=== PATIENT | female | born 1960 | race Caucasian/White ===

== ENCOUNTER 2017-05-15 22:35 | Inpatient (IN) | payer OTHER ==
[~2017-05-15] VITALS: Ht 172.7 cm; Wt 99.0 kg
--- NOTE | 2017-05-15 23:20 | NUR ---
PT WHEELED TO ROOM 8
--- NOTE | 2017-05-16 00:20 | NUR ---
PATIENT STILL HYPERVENTILATING, BUT APPEARS MORE RELAXED, ALTHOUGH SHAKY. MEDICATIONS ADMINISTERED AND IV INFUSING PER ORDERS.
[2017-05-16] MEDS ORDERED: MULTIVITAMI9 PO (00:28)
[2017-05-16 00:34] LABS: HEMOGLOBIN 13.4 g/dl (12.0-16.0); IMMATURE GRANULOCYTES 0.6 % (0.0-1.0); MEAN CORPUSCULAR HGB 27.5 pG CALC (26.0-32.0); MEAN CORPUSCULAR HGB CONC 32.7 g/L CALC (32.0-36.0); NEUT# 9.75 thou/uL (2.00-7.15); RED BLOOD COUNT 4.88 mill/uL (4.20-5.60); RED CELL DISTRI WIDTH 15.5 % (11.5-15.5)
[2017-05-16 00:50] LABS: ALBUMIN 4.5 g/dL (3.2-5.0); ALKALINE PHOSPHATASE 131 u/l (38-126); AMYLASE 79 u/l (30-110); ANION GAP 20 (6-22 (CALC)); BUN 12 mg/dL (7-17); BUN/CREATININE RATIO 13 (12-20 (CALC)); CARBON DIOXIDE 19 mmol/l (22-30); CHLORIDE 100 mmol/l (95-108); CREATININE 0.9 mg/dL (0.5-1.0); GFR > 60 ML/MIN (>=60 (CALC)); GFR FOR AFR.AMER. > 60 ML/MIN (>=60 (CALC)); LIPASE 47 u/l (23-300); POTASSIUM 3.7 mmol/l (3.5-5.1); SGOT/AST 33 u/l (14-36); SGPT/ALT 23 u/l (9-52); SODIUM 136 mmol/l (137-146); TOTAL PROTEIN 8.1 g/dL (6.3-8.2)
[2017-05-16 01:00] LABS: MYOGLOBIN 64 ng/mL (0 - 62)
--- NOTE | 2017-05-16 01:00 | NUR ---
AWAITING X-RAY. IN NO DISTRESS AT THIS TIME.
--- NOTE | 2017-05-16 02:00 | NUR ---
UP TO BATHROOM TO VOID WITHOUT DIZZINESS OR LIGHTHEADEDNESS.
[2017-05-16 02:29] LABS: URINE BILIRUBIN - DIPSTICK NEGATIVE (NEGATIVE); URINE BLOOD DIPSTICK SMALL (NEGATIVE); URINE COLOR YELLOW; URINE GLUCOSE - DIPSTICK NEGATIVE (NEGATIVE); URINE KETONE NEGATIVE (NEGATIVE); URINE NITRITE - DIPSTICK NEGATIVE (Negative); URINE PROTEIN - DIPSTICK TRACE mg/dL (NEG-TRACE); URINE SPECIFIC GRAVITY <=1.005; URINE UROBILINOGEN - DIPSTICK 0.2 E.U./dL (0.2)
[2017-05-16 02:30] LABS: URINE CLARITY SL CLOUDY; URINE LEUK ESTERASE SMALL (NEGATIVE)
[2017-05-16 02:36] LABS: URINE BACTERIA FEW hpf; URINE MUCUS FEW hpf (NONE-FEW); URINE RBC 0-2 RBC/hpf (0-5); URINE SQUAMOUS EPITHELIAL CELL MODERATE EPI/hpf (0-FEW)
--- NOTE | 2017-05-16 03:00 | NUR ---
RELAXING WITH FAMILY AT BEDSIDE. REMAINS COMFORTABLE. AWAITING RADIOLOGY RESULTS.
--- NOTE | 2017-05-16 03:37 | NUR ---
REPORT TO eKra CAVAZOS RN.
--- NOTE | 2017-05-16 03:53 | NUR ---
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
--- NOTE | 2017-05-16 04:00 | NUR ---
PT.ARRIVED TO FLOOR AT THIS TIME ACCOMPANIED BY ISIAH OF ED. PT.APPEARS TO BE IN STABLE CONDITION AT THIS TIME. V/S ASSESSED AND PT.ORIENTED TO ROOM,CALL SYSTEM, LIGHTS, TV AND BED. PT.IS REQUESTING A SHOWER, ASSISTANCE PROVIDED.
[2017-05-16 04:22] VITALS: BP 138/84
--- NOTE | 2017-05-16 05:07 | NUR ---
PT. MEDICATED W/ROCEPHIN AND IV FLUIDS ORDERED BY FROM ED. PT.IS IN BED W/LIGHTS LOW AND TV OFF, BUT AWAKE. SHE DENIES ANY DISTRESS AT THIS TIME. CALL LIGHT IS W/IN REACH. PT.RECEIVED SHOWER AND IS TRYING TO GO TO SLEEP AT THIS TIME, I INSTRUCTED PT.TO CALL AND REORIENTED TO CALL SYSTEM SO SHE MAY CALL IF ANY NEEDS ARISE.
--- NOTE | 2017-05-16 07:00 | NUR ---
RECEIVED BEDSIDE REPORT FROM SUZETTE JAIN. RESTING IN SEMI FOWLERS WITH EYES CLOSED, AWAKENS EASILY. RESPS EVEN AND UNLABORED ON ROOM AIR. #20 LAC INFUSING WITHOUT DIFFICULTY, SITE APPEARS HEALTHY. DENIES PAIN OR DISCOMFORT. PLAN OF CARE DISCUSSED, SAFETY PRECAUTIONS REINFORCED. BED IN LOWEST POSITION WITH WHEELS LOCKED. CALL LIGHT WITHIN REACH. ENCOURAGED PT TO CALL FOR ANY NEEDS.
[2017-05-16 07:55] VITALS: BP 110/67
--- NOTE | 2017-05-16 08:05 | NUR ---
TO RADIOLOGY IN STABLE CONDITION VIA WHEELCHAIR ACCOMPANIED BY SURINDER KRISHNAMURTHY.
--- NOTE | 2017-05-16 08:20 | NUR ---
FROM RADIOLOGY VIA WHEELCHAIR ACCOMPANIED BY SURINDER KRISHNAMURTHY. AMBULATED TO BATHROOM WITH STEADY GAIT. DENIES PAIN OR DISCOMFORT. CALL LIGHT WITHIN REACH. WILL CONTINUE TO MONITOR.
--- NOTE | 2017-05-16 10:00 | NUR ---
DR LARIOS IN WITH PT, NEW ORDERS RECEIVED.
--- NOTE | 2017-05-16 12:00 | NUR ---
TOLERATING REGULAR DIET WITHOUT C/O ABD PAIN OR NAUSEA. FAMILY AT BEDSIDE. #20 LAC INFUSING WITHOUT DIFFICULTY, SITE APPEARS HEALTHY. CALL LIGHT IWHIN REACH. WILL CONTINUE TO MONITOR.
[2017-05-16 14:38] LABS: ACT PARTIAL THROMBO TIME 26.4 SECONDS (20.0-32.5); PROTHROMBIN TIME 10.7 SECONDS (9.0-12.5)
--- NOTE | 2017-05-16 16:00 | NUR ---
RESTING IN HIGH FOWLERS WATCHING TV. RESPS EVEN AND UNLABORED ON ROOM AIR. #20 LAC INFUSING WITHOUT DIFFICULTY, SITE APPEARS HEALTHY. SCD'S ON BILAT LOWER EXTREMITIES. ENCOURAGED TO USE IS 10X HR WHILE AWAKE. DENIES PAIN OR DISCOMFORT. CALL LIGHT WITHIN REACH.
[2017-05-16 17:02] VITALS: BP 132/86
--- NOTE | 2017-05-16 19:15 | NUR ---
REPORT RECEIVED FROM NIGHT NURSE, PT.IS IN HIGH FOWLERS POSITION W/SCD'S ON, LIGHTS AND TV ON AND AT BEDSIDE. POC DISCUSSED AT THIS TIME. DENIES ANY OTHER NEEDS AT THIS TIME AND NO S/S OF DISTRESS. CALL LIGHT W/IN REACH
[2017-05-16 21:27] VITALS: BP 130/84
--- NOTE | 2017-05-16 22:47 | NUR ---
PT.IV PUMP RESET AND PT.ASSESSED. PT.IS IN BED W/LIGHTS ON AND HAD FALLEN ASLEEP. SHE DENIES ANY PAIN/N/V AND IS NON-TENDER IN THE ABDOMEN, WHICH IS SOFT AND PLIABLE AT THIS TIME. LUNG SOUNDS ARE CLEAR AND PT.IS LOCX4. PT.ACKNOWLEDGES POC OF NPO AFTER MIDNIGHT AND DENIES ANY NEEDS AT THIS TIME. I ENCOURAGED PT.TO CALL IF ANY NEEDS ARISE AND REORIENTED TO CALL LIGHT AND LIGHTS.
[2017-05-17] VITALS (10 sets, daily range): BP systolic 109–131; BP diastolic 61–81
--- NOTE | 2017-05-17 00:10 | NUR ---
PT.WATER REMOVED FROM ROOM. PT.AWOKE I ENTERED ROOM, POC/NPO STATUS DISCUSSED. DENIES ANY NEEDS, ENCOURAGED TO CALL IF ANY NEEDS ARISE.
--- NOTE | 2017-05-17 03:53 | NUR ---
PT.V/S ASSESSED AND IV PUMP CLEARED. PT.AWOKE TO OUR ENTERING ROOM, CENIES ANY NEEDS AT THIS TIME. CALL LIGHT IS AT SIDE.
--- NOTE | 2017-05-17 07:00 | NUR ---
RECEIVED BEDSIDE REPORT FROM SUZETTE JAIN. RESTING IN BED WITH EYES CLOSED, AWAKENS EASILY. RESPS EVEN AND UNLABORED ON ROOM AIR. #20 LAC INFUSING WITHOUT DIFFICULTY, SITE APPEARS HEALTHY. SCD'S TO BILAT LOWER EXTREMITIES. DENIES PAIN OR DISCOMFORT. ENCOURAGED PT TO REMAIN NPO. PLAN OF CARE DISCUSSED. SAFETY PRECAUTIONS REINFORCED. BED IN LOWEST POSITION WITH WHEELS LOCKED. CALL LIGHT WITHIN REACH. ENCOURAGED PT TO CALL FOR ANY NEEDS.
--- NOTE | 2017-05-17 11:45 | NUR ---
TO OR VIA STRETCHER ACCOMPANIED BY AND WALKER RN.
--- NOTE | 2017-05-17 14:50 | NUR ---
FRM OR VIA STRETCHER ACCOMPANIED BY SHAREE JAIN AND MARGAUX RN. TRANSFERRED TO BED WITH STAND BY ASSIST. RESPS EVEN AND UNLABORED ON ROOM AIR. #20 LAC INFUSING WITHOUT DIFFICULTY, SITE APPEARS HEALTHY. C/O "NAUSEA THAT COMES AND GOES." DENIES PAIN, WILL MEDICATE PER MAR. SCD'S TO BILAT LOWER EXTREMITIES. CALL LIGHT WITHIN REACH. ORIENTED TO ROOM AND CALL SYSTEM. BED IN LOWEST POSITION WITH WHEELS LOCKED. SAFETY PRECAUTIONS REINFORCED. ENCOURAGED PT TO CALL FOR ANY NEEDS.
--- NOTE | 2017-05-17 14:50 | NUR ---
MEDIATED WITH ZOFRAN 4MG IVP FOR C/O NAUSEA. ICE CHIPS PROVIDED. CALL LIGHT WITHIN REACH. FAMILY AT BEDSIDE. WILL CONTINUE TO MONITOR. CALL LIGHT WITHIN REACH.
--- NOTE | 2017-05-17 17:10 | NUR ---
MEDICATED WITH MORPHINE 2MG IVP FOR C/O 10/10 INTERMITTENT CRAMPING. AT BEDSIDE. CALL LIGHT WITHIN REACH.
--- NOTE | 2017-05-17 17:20 | NUR ---
DR NICHOLSON IN WITH PT, NEW ORDERS RECEIVED.
--- NOTE | 2017-05-17 18:12 | NUR ---
AMBULATED TO BATHROOM WITH STEADY GAIT. VOIDED 350CC ORANGE COLORED URINE WITHOUT DIFFICULTY. #20 LAC INFUSING WITHOUT DIFFICULTY, SITE APPEARS HEALTHY. DENIES PAIN OR DISCOMFORT. CALL LIGHT WITHIN REACH. AT BEDSIDE. ENCOURAGED PT AND TO CALL FOR ANY NEEDS.
--- NOTE | 2017-05-17 18:59 | NUR ---
TOLERATED REGULAR DIET WITHOUT C/O NAUSEA OR ABD PAIN.
--- NOTE | 2017-05-17 19:25 | NUR ---
REPORT RECEIVED FROM DAY NURSE, PT.IS IN BED W/SPOUSE AT BEDSIDE AND CALL LIGHT IN HAND. PT.DENIES ANY PAIN OR DISCOMFORT AT THIS TIME. POC/DISCHARGE DISCUSSED W/PT.SHE IS "READY TO GO HOME." WILL DISCUSS DC W/[facility] [employer] OR .
--- NOTE | 2017-05-17 19:28 | NUR ---
REPORT RECEIVED FROM DAY NURSE, PT.IS IN BED W/LIGHTS ON, AT BEDSIDE. POC/DISCHARGE DISCUSSED. PT.EXPRESSES THAT SHE IS READY TO GO HOME. WILL SPEAK W/[facility] [employer] REGARDING DC
--- NOTE | 2017-05-17 20:19 | NUR ---
Discharge instructions given. Patient verbalizes understanding of same. Discharged in stable condition via Wheelchair to Home with spouse. All belongings sent with pt. Iv was removed intact/site appears healthy. Prescriptions included in dc papers.
== END 2017-05-17 20:19 | disposition home or self-care (01) | DRG 691 ==
LOC: ED 22:35 → ED-I 05-16 02:29 → ED 05-16 02:51 → MS2 05-16 02:52
PROVIDERS: Emergency Medicine; Urology; ADMIT Internal Medicine; ATTEND Internal Medicine
PROC: 0TF7XZZ Fragmentation in Left Ureter, External Approach (ICD-10-PCS; principal; 2017-05-17)
PROC: 0T778DZ Dilation of Left Ureter with Intraluminal Device, Via Natural or Artificial Opening Endoscopic (ICD-10-PCS; 2017-05-17)
PROC: BT1D1ZZ Fluoroscopy of Right Kidney, Ureter and Bladder using Low Osmolar Contrast (ICD-10-PCS; 2017-05-17)
DX: N13.2 Hydronephrosis with renal and ureteral calculous obstruction (principal); Z84.1 Family history of disorders of kidney and ureter
CPT/HCPCS: J1650; J2710; Q9967

== ENCOUNTER 2017-07-01 11:49 | Day surgery (SDC) | payer OTHER ==
[~2017-07-01] VITALS: Ht 172.7 cm; Wt 98.9 kg
[~2017-07-01 11:49] MED LIST: MULTIVITAMI9 PO
[2017-07-01] MEDS ORDERED: BACTRIM DS1 TAB PO (18:56)
[2017-07-01] MEDS ORDERED: PYRIDIUM200 MG PO (18:56)
[2017-07-01] MEDS ORDERED: TAMSULOSIN0.4 MG PO (18:56)
[2017-07-01 19:12] VITALS: BP 125/57
== END 2017-07-01 19:40 | disposition home or self-care (01) | DRG 661 ==
LOC: ORM 11:49
PROVIDERS: ATTEND Urology
PROC: 0TC78ZZ Extirpation of Matter from Left Ureter, Via Natural or Artificial Opening Endoscopic (ICD-10-PCS; principal; 2017-07-01)
PROC: 0TC18ZZ Extirpation of Matter from Left Kidney, Via Natural or Artificial Opening Endoscopic (ICD-10-PCS; 2017-07-01)
PROC: 0T778DZ Dilation of Left Ureter with Intraluminal Device, Via Natural or Artificial Opening Endoscopic (ICD-10-PCS; 2017-07-01)
PROC: BT1FZZZ Fluoroscopy of Left Kidney, Ureter and Bladder (ICD-10-PCS; 2017-07-01)
DX: N20.2 Calculus of kidney with calculus of ureter (principal)
CPT/HCPCS: J2710; Q9967